=== PATIENT | female | born 1940 | race Caucasian/White ===

== ENCOUNTER 2021-01-21 10:55 | Day surgery (SDC) | payer MEDICARE, OTHER ==
[2021-01-16 15:31] LABS: BASOPHILS # (AUTO) 0.1 X10'3 (0-0.2); BASOPHILS % (AUTO) 1.1 % (0-1); EOSINOPHILS # (AUTO) 0.1 X10'3 (0-0.9); HEMATOCRIT 42.5 % (35.0-45.0); HEMOGLOBIN 14.4 g/dl (12.0-16.0); LYMPHOCYTES # (AUTO) 0.7 X10'3 (1.1-4.8); LYMPHOCYTES % (AUTO) 10.4 % (21-51); MEAN CORPUSCULAR HEMOGLOBIN 29.7 PG (27.0-31.0); MEAN CORPUSCULAR HGB CONC 33.9 g/dL (33.0-36.5); MEAN CORPUSCULAR VOLUME 87.8 FL (78-98); MEAN PLATELET VOLUME 7.7 FL (7.4-10.4); MONOCYTES # (AUTO) 0.7 X10'3 (0-0.9); NEUTROPHILS # (AUTO) 5.1 X10'3 (1.8-7.7); NEUTROPHILS % (AUTO) 76.5 % (42-75); PLATELET COUNT 178 X10'3 (140-440); RED BLOOD COUNT 4.84 X10'6 (4.20-5.60); RED CELL DISTRIBUTION WIDTH 14.3 % (11.5-14.5); WHITE BLOOD COUNT 6.7 X10'3 (4.5-11.0)
[2021-01-16 15:35] LABS: PARTIAL THROMBOPLASTIN TIME 49 SECONDS (22-32)
[2021-01-16 15:44] LABS: ALBUMIN 3.7 G/DL (3.4-5.0); ANION GAP 6 (8-16); BLOOD UREA NITROGEN 12 MG/DL (7-18); BUN/CREATININE RATIO 13.5 (6.6-38.0); CALCIUM 10.3 MG/DL (8.5-10.1); CHLORIDE 109 MMOL/L (99-107); CREATININE 0.89 MG/DL (0.40-0.90); GLUCOSE 112 MG/DL (70-104); POTASSIUM 3.5 MMOL/L (3.5-5.1); SODIUM 142 MMOL/L (135-145); TOTAL CARBON DIOXIDE 27.2 MMOL/L (24-32); eGFR 61 ML/MIN
[~2021-01-21] VITALS: Ht 157.5 cm; Wt 58.6 kg
[2021-01-21] VITALS (16 sets, daily range): BP systolic 110–168; BP diastolic 67–109
[2021-01-21] MEDS ORDERED: normal saline 1000ml 1,000 ML IV SCH (11:25)
[2021-01-21] MEDS ORDERED: fentaNYL/PF 50MCG/1 ML 2ML syringe IV ONE (11:25)
[2021-01-21] MEDS ORDERED: MIDAZolam 1mg/ml 10ml vial IV ONE (11:25)
[2021-01-21] MEDS ORDERED: LOSA25TA96 PO ×2 (12:18)
[2021-01-21] MEDS ORDERED: TRAZ150T78 PO (12:18)
[2021-01-21] MEDS ORDERED: DENO60DI SUBCUT (12:18)
[2021-01-21] MEDS ORDERED: SIMV10TA98 PO (12:18)
[2021-01-21] MEDS ORDERED: CLIN300C54 PO (12:18)
[2021-01-21] MEDS ORDERED: WARF-65 PO (12:18)
[2021-01-21] MEDS ORDERED: LOP12.5T PO (12:18)
[2021-01-21] MEDS ORDERED: BIMA2.5D OP (12:18)
[2021-01-21] MEDS ORDERED: DRON400T7 PO (12:18)
== END 2021-01-21 15:05 | disposition home or self-care (01) ==
LOC: SSTAY O 10:55
PROVIDERS: ATTEND Internal Medicine Interventional Cardiology
DX: I48.91 Unspecified atrial fibrillation (principal); I10 Essential (primary) hypertension; I08.0 Rheumatic disorders of both mitral and aortic valves; Z88.0 Allergy status to penicillin; Z88.8 Allergy status to other drugs, medicaments and biological substances; Z79.01 Long term (current) use of anticoagulants; Z79.82 Long term (current) use of aspirin; Z95.2 Presence of prosthetic heart valve
CPT/HCPCS: 36415; 80048; 85025; 85610; 85730; 92960; 93005; 94760; 94799; J2250; J3010; J7030